=== PATIENT | female | born 1995 | race Caucasian/White ===

== ENCOUNTER → 2024-01-22 10:44 | Outpatient (BNVA) | payer SELFPAY | PROVIDERS: Visit Provider Nurse Practitioner Family | DX: M25.531 Pain in right wrist (principal); S63.501A Unspecified sprain of right wrist, initial encounter; X58.XXXA Exposure to other specified factors, initial encounter | CPT/HCPCS: 73110 ==

== ENCOUNTER → 2024-01-28 14:52 | Outpatient (BNVA) | payer SELFPAY | PROVIDERS: Visit Provider Specialist | DX: M25.531 Pain in right wrist; M65.4 Radial styloid tenosynovitis [de Quervain] | CPT/HCPCS: 73110 ==